=== PATIENT | female | born 1945 | race Caucasian/White ===

== ENCOUNTER → 2022-07-11 09:35 | Outpatient (CLI) | payer SELFPAY ==
--- NOTE | 2022-07-11 09:40 | XR_ITS ---
FINAL REPORT CLINICAL HISTORY: PERSISTENT LOW BACK PAIN FINDINGS: LUMBAR SPINE 5 views of the lumbar spine were obtained. There is no evidence of fracture or dislocation. There is dextroscoliosis. The vertebral alignment is normal. There are mild and moderate degenerative changes. No paraspinous soft tissue abnormalities identified. IMPRESSION: Degenerative changes with no acute bony abnormality. Reviewed, Interpreted and Dictated by Greg White III, MD Transcribed by Elen Bucio Authenticated and [facility]
== END ==
PROVIDERS: Visit Provider Family Medicine
DX: M54.50 Low back pain, unspecified (principal)
CPT/HCPCS: 72110

== ENCOUNTER 2025-01-13 20:55 | Emergency (ER) | payer SELFPAY ==
[2025-01-13 21:03] VITALS: BP 220/110; PULSE 75; RESP 20; TEMP 36.7; O2SAT 98; BMI 24.0
--- NOTE | 2025-01-13 21:07 | XR_ITS ---
PROCEDURE INFORMATION: Exam: XR Chest Exam date and time: 01/13/2025 9:50 PM Age: 79 years old Clinical indication: Shortness of breath; Additional info: Short of breath TECHNIQUE: Imaging protocol: Radiologic exam of the chest. Views: 1 view. COMPARISON: No relevant prior studies available. FINDINGS: Lungs: Unremarkable. No consolidation. Pleural spaces: Unremarkable. No pleural effusion. No pneumothorax. Heart/Mediastinum: Unremarkable. No cardiomegaly. Bones/joints: Mild degenerative changes of the spine and shoulders. No acute osseous abnormality. IMPRESSION: No acute disease
--- NOTE | 2025-01-13 21:07 | CT_ITS ---
PROCEDURE INFORMATION: Exam: CT Head Without Contrast Exam date and time: 01/13/2025 9:50 PM Age: 79 years old Clinical indication: Other: Elevated BP TECHNIQUE: Imaging protocol: Computed tomography of the head without contrast. Radiation optimization: All CT scans at this facility use at least one of these dose optimization techniques: automated exposure control; mA and/or kV adjustment per patient size (includes targeted exams where dose is matched to clinical indication); or iterative reconstruction. COMPARISON: No relevant prior studies available. FINDINGS: Brain: Moderate generalized cerebral atrophy. No intracranial mass, hemorrhage or evidence of acute ischemia. Cerebral ventricles: No ventriculomegaly. Paranasal sinuses: Visualized sinuses are unremarkable. No fluid levels. Mastoid air cells: Visualized mastoid air cells are well aerated. Nasal cavity: Significant leftward nasal septal deviation Bones: Unremarkable. No acute fracture. Soft tissues: Unremarkable. IMPRESSION: No acute intracranial abnormality
--- NOTE | 2025-01-13 21:09 | ECG_ITS ---
APPROVED REPORT Exam: Resting ECG HR:75 bpm ECG Measurements Heart Rate 75 AXES IN 172 P 73 QRSd 95 QRS 52 QT 419 T 20 QTc 448 Conclusion SINUS RHYTHM NONSPECIFIC T-WAVE ABNORMALITY No STEMI Electronically signed by : MARQUISE PABON, 01/14/2025 00:09:51
--- NOTE | 2025-01-13 21:16 | HMH.EDGENADL ---
Discharge Plan Disposition Patient Disposition: Home, Self-Care Condition: Good Prescriptions Prescriptions: New lisinopril 10 mg tablet 10 mg PO DAILY Qty: 30 1RF No Action amitriptyline 25 mg tablet 25 mg PO HS PRN (Reason: sleep) Qty: 30 10RF Activity Restrictions/Add. Instructions Additional Instructions/Restrictions: You were evaluated in the emergency department today. Your labs and CT scan are reassuring today. Your blood pressure was very high, so we are starting you on a low-dose blood pressure medication. Please follow-up closely with your primary care provider for adjustment and monitoring of this. If you experience dizziness, lightheadedness, or passing out, please stop this medication until otherwise directed by your doctor. Return to the emergency department for new or worsening symptoms. Clinical Impressions Clinical Impression: Headache, High blood pressure Instructions Patient Instructions: DI for High Blood Pressure, DI for Headache Print Language Print Language: Beninese Discharge ED Provider: Noemí Ruffin General Adult HPI <Tanya Collado (ED), [employer] OPERATOR - Last Filed: 01/13/25 21:50> General Chief complaint: Headache Stated complaint: HBP Time Seen by Provider: 01/13/25 21:01 Mode of Arrival: Ambulatory Source of Information: Patient Description of Symptoms (Recalled from ER Triage Doc. by RN): Pt states she has headache and BP is elevated History of Present Illness HPI narrative: 79-year-old female presents to the ED today for complaint of headache and elevated blood pressure. She had [place] from an take her blood pressure this afternoon and it was over 200 systolic. She was encouraged to come to the emergency room for evaluation with the headache and the elevated blood pressure. She denies any visual changes. No weakness, no chest pain. She does have shortness of breath with exertion. She says this is no more than normal. Patient states that her right leg swells at times. No left leg swelling. No nausea or vomiting. No fever or chills. No other systemic symptoms. Patient denies any other problems or concerns today. She denies any health problems. Related Data Previous Rx's ?Medication ?Instructions ?Recorded amitriptyline 25 mg tablet 25 mg PO HS PRN sleep #30 tabs 12/11/20 lisinopril 10 mg tablet 10 mg PO DAILY #30 tabs 01/13/25 Allergies Allergy/AdvReac Type Severity Reaction Status Date / Time Penicillins AdvReac Unknown Verified 11/16/20 10:10 [facility] <Tanya Collado (ED), [employer] OPERATOR - Last Filed: 01/13/25 21:50> [facility] Disclaimer: The information contained in this section may have been updated after the patient was seen, as this information can be updated by other users. Social History Smoking Status: Never smoker alcohol intake: never substance use type: denies use current occupational status: retired and other Travel in the last 8 weeks?: None Have you lived/traveled outside [place] in past 30 days?: No Contact w/someone who lives/traveled outside US past 30 days?: No Exposure to someone with infectious disease in past 14 days?: No Do you have a fever (greater than 100.4 F or 38 C)?: No Have you tested positive for COVID-19?: No Exposed to someone with COVID-19 in past 14 days?: No Do you have a sore throat?: No Do you have a cough?: No Do you have any weakness?: No Do you have any diarrhea?: No Are you experiencing any unusual bleeding?: No Do you have any muscle aches/pain?: No Do you have any abdominal pain?: No Are you experiencing loss of taste or smell?: No Other Medical History Have you received the Pneumonia Vaccine: No <Tanya Collado (ED), [employer] OPERATOR - Last Filed: 01/13/25 21:50> ROS Obtained: Yes Systems reviewed as appropriate & no additional complaints except as documented Constitutional Constitutional: Reports as per HPI Physical Exam <Tanya Collado (ED), [employer] OPERATOR - Last Filed: 01/13/25 21:50> General General appearance: alert and in no apparent distress Head Head exam: atraumatic and normocephalic Eye Eye exam: Present normal appearance, PERRL and EOMI ENT ENT exam: Present normal oropharynx and mucous membranes moist Neck Neck exam: Present full ROM and trachea midline Chest Chest inspection: Present normal inspection Respiratory Respiratory exam: Present normal lung sounds bilaterally Cardiovascular Cardiovascular exam: Present regular rate, normal rhythm, normal heart sounds, +S1 and +S2 Abdominal Exam Abdominal exam: Present soft and normal bowel sounds Extremities Exam Extremities exam: Present full ROM, normal capillary refill and edema (Right leg only) Neurological Exam Neurological exam: Present alert, oriented X3 and normal gait Skin Skin exam: Present warm, dry and intact Medical Decision Making <Tanya Collado (ED), [employer] OPERATOR - Last Filed: 01/13/25 21:50> Medical Records Screening: Per USPSTF and CDC recommendations, given the prevalence of disease in our region, it is our hospital?s policy to screen for HIV and viral Hepatitis for all patients aged 18 and over and those with ongoing risk factors. Terence Inquiry Pt receiving controlled substance: No Terence was queried for this patient: No Vital Signs: 01/13/25 21:03 01/13/25 21:53 01/13/25 22:00 Temperature 98.1 F Temperature Source Oral Pulse Rate 64 65 Pulse Rate [Right Brachial] 75 Respiratory Rate 20 16 Blood Pressure 155/96 H Blood Pressure [Right Arm] 220/110 H Blood Pressure Mean 134 Blood Pressure Mean [Right Arm] 146 Blood Pressure Source Blood Pressure Source [Right Arm] Automatic Cuff Blood Pressure Position Blood Pressure Position [Right Arm] Sitting 02 Sat by Pulse Oximetry 98 98 96 Oxygen Delivery Method Room Air 01/13/25 22:30 01/13/25 23:02 01/13/25 23:09 Temperature 98.1 F Temperature Source Oral Pulse Rate 67 62 62 Pulse Rate [Right Brachial] Respiratory Rate 18 18 18 Blood Pressure 172/94 H 168/100 H 168/100 H Blood Pressure [Right Arm] Blood Pressure Mean 143 122 Blood Pressure Mean [Right Arm] Blood Pressure Source Automatic Cuff Blood Pressure Source [Right Arm] Blood Pressure Position Sitting Blood Pressure Position [Right Arm] 02 Sat by Pulse Oximetry 97 Oxygen Delivery Method Room Air Lab Data Lab Results 01/13/25 21:00: WBC 5.6, RBC 4.01 L, Hgb 12.1 L, Hct 35.6 L, MCV 88.8, MCH 30.2, MCHC 34.0, RDW 14.1, Plt Count 224, MPV 9.5, Neut % (Auto) 61.6, Lymph % (Auto) 21.8, [place] % (Auto) 14.2 H, Eos % (Auto) 2.2, Baso % (Auto) 0.0 L, Neut # (Auto) 3.4, Lymph # (Auto) 1.2, [place] # (Auto) 0.8, Eos # (Auto) 0.1, Baso # (Auto) 0.0, PT 10.8, INR 0.97, Sodium 134 L, Potassium 4.0, Chloride 99, Carbon Dioxide 24, Anion Gap 15.0, BUN 15, Creatinine 0.90, Estimated Creat Clear 46, Estimated GFR 60, Est GFR ( Amer) 73, Glucose 94, Calcium 9.4, Magnesium 1.8, Total Bilirubin 0.5, AST 61 H, ALT 51, Alkaline Phosphatase 69, Troponin I < 0.01, Total Protein 7.5, Albumin 4.7, Globulin 2.8, Albumin/Globulin Ratio 1.7, Lipase 223, HCV Ab SABAS w/Rflx PCR Qn Negative 01/13/25 21:00 01/13/25 21:00 Orders (Tests/Meds): ED MEDICATIONS Discontinued Medications Generic Name Dose Route Start Last Admin Trade Name Freq PRN Reason Stop Dose Admin Acetaminophen 1,000 mg 01/13/25 21:07 01/13/25 21:17 Acetaminophen 1,000mg/100ml Vial IV 01/13/25 21:08 1,000 mg ONCE ONE Administration Sodium Chloride 1,000 mls @ 999 mls/hr 01/13/25 21:07 01/13/25 21:17 Sod Chlor 0.9% 1000ml Bag IV 01/13/25 22:07 999 mls/hr .Q1H1M ONE Administration Magnesium Sulfate 2 gm in 50 mls @ 50 mls/hr 01/13/25 21:07 01/13/25 21:35 Magnesium Sulfate 2gm/50ml Premix IV 01/13/25 22:06 50 mls/hr ONCE ONE Administration Lisinopril 10 mg 01/13/25 22:52 01/13/25 22:59 Lisinopril 10mg Tablet PO 01/13/25 22:53 10 mg ONCE ONE Administration ORDERS Category Date Time Status CT head/brain wo con Stat Cat Scan 01/13/25 21:07 Completed Chest XR -- portable [XR chest portable] Stat Exams 01/13/25 21:07 Completed CBC [Complete Blood Count Auto Diff] Stat Lab 01/13/25 21:00 Completed Comprehensive Metabolic Panel Stat Lab 01/13/25 21:00 Completed HIV Combo Routine Lab 01/13/25 21:00 Received Hepatitis C Ab Qual. W/ RFX Routine Lab 01/13/25 21:00 Completed Lipase Stat Lab 01/13/25 21:00 Completed Magnesium Stat Lab 01/13/25 21:00 Completed PT INR [Prothrombin Time INR] Stat Lab 01/13/25 21:00 Completed Trop I [Troponin I] Stat Lab 01/13/25 21:00 Completed Medical Decision Narrative: patient is a 79-year-old female presenting to the emergency department for evaluation of elevated blood pressure and headache. Patient has elevated blood pressure and nontoxic-appearing upon arrival, afebrile. Differential diagnosis includes hypertensive emergency, head bleed, among others. Workup will be conducted with hematologic labs, specific imaging . Initial inventions include crystalloid bolus and scan of head. I have discussed her hypertension with Dr. Ruffin and her plan will be to do labs and monitor her pressure. Dr. Ruffin will be taking over her care. <Noemí Ruffin, DO - Last Filed: 01/13/25 23:53> Vital Signs: 01/13/25 21:03 01/13/25 21:53 01/13/25 22:00 Temperature 98.1 F Temperature Source Oral Pulse Rate 64 65 Pulse Rate [Right Brachial] 75 Respiratory Rate 20 16 Blood Pressure 155/96 H Blood Pressure [Right Arm] 220/110 H Blood Pressure Mean 134 Blood Pressure Mean [Right Arm] 146 Blood Pressure Source Blood Pressure Source [Right Arm] Automatic Cuff Blood Pressure Position Blood Pressure Position [Right Arm] Sitting 02 Sat by Pulse Oximetry 98 98 96 Oxygen Delivery Method Room Air 01/13/25 22:30 01/13/25 23:02 01/13/25 23:09 Temperature 98.1 F Temperature Source Oral Pulse Rate 67 62 62 Pulse Rate [Right Brachial] Respiratory Rate 18 18 18 Blood Pressure 172/94 H 168/100 H 168/100 H Blood Pressure [Right Arm] Blood Pressure Mean 143 122 Blood Pressure Mean [Right Arm] Blood Pressure Source Automatic Cuff Blood Pressure Source [Right Arm] Blood Pressure Position Sitting Blood Pressure Position [Right Arm] 02 Sat by Pulse Oximetry 97 Oxygen Delivery Method Room Air Lab Data Lab Results 01/13/25 21:00: WBC 5.6, RBC 4.01 L, Hgb 12.1 L, Hct 35.6 L, MCV 88.8, MCH 30.2, MCHC 34.0, RDW 14.1, Plt Count 224, MPV 9.5, Neut % (Auto) 61.6, Lymph % (Auto) 21.8, [place] % (Auto) 14.2 H, Eos % (Auto) 2.2, Baso % (Auto) 0.0 L, Neut # (Auto) 3.4, Lymph # (Auto) 1.2, [place] # (Auto) 0.8, Eos # (Auto) 0.1, Baso # (Auto) 0.0, PT 10.8, INR 0.97, Sodium 134 L, Potassium 4.0, Chloride 99, Carbon Dioxide 24, Anion Gap 15.0, BUN 15, Creatinine 0.90, Estimated Creat Clear 46, Estimated GFR 60, Est GFR ( Amer) 73, Glucose 94, Calcium 9.4, Magnesium 1.8, Total Bilirubin 0.5, AST 61 H, ALT 51, Alkaline Phosphatase 69, Troponin I < 0.01, Total Protein 7.5, Albumin 4.7, Globulin 2.8, Albumin/Globulin Ratio 1.7, Lipase 223, HCV Ab SABAS w/Rflx PCR Qn Negative Orders (Tests/Meds): ED MEDICATIONS Discontinued Medications Generic Name Dose Route Start Last Admin Trade Name Freq PRN Reason Stop Dose Admin Acetaminophen 1,000 mg 01/13/25 21:07 01/13/25 21:17 Acetaminophen 1,000mg/100ml Vial IV 01/13/25 21:08 1,000 mg ONCE ONE Administration Sodium Chloride 1,000 mls @ 999 mls/hr 01/13/25 21:07 01/13/25 21:17 Sod Chlor 0.9% 1000ml Bag IV 01/13/25 22:07 999 mls/hr .Q1H1M ONE Administration Magnesium Sulfate 2 gm in 50 mls @ 50 mls/hr 01/13/25 21:07 01/13/25 21:35 Magnesium Sulfate 2gm/50ml Premix IV 01/13/25 22:06 50 mls/hr ONCE ONE Administration Lisinopril 10 mg 01/13/25 22:52 01/13/25 22:59 Lisinopril 10mg Tablet PO 01/13/25 22:53 10 mg ONCE ONE Administration ORDERS Category Date Time Status CT head/brain wo con Stat Cat Scan 01/13/25 21:07 Completed Chest XR -- portable [XR chest portable] Stat Exams 01/13/25 21:07 Completed CBC [Complete Blood Count Auto Diff] Stat Lab 01/13/25 21:00 Completed Comprehensive Metabolic Panel Stat Lab 01/13/25 21:00 Completed HIV Combo Routine Lab 01/13/25 21:00 Received Hepatitis C Ab Qual. W/ RFX Routine Lab 01/13/25 21:00 Completed Lipase Stat Lab 01/13/25 21:00 Completed Magnesium Stat Lab 01/13/25 21:00 Completed PT INR [Prothrombin Time INR] Stat Lab 01/13/25 21:00 Completed Trop I [Troponin I] Stat Lab 01/13/25 21:00 Completed ECG Data Tracing #1: I reviewed this ECG and interpreted as documented below: Normal sinus rhythm with a ventricular rate of [address] changes concerning for STEMI. ECG initial impression date: 01/13/25 ECG initial impression time: 21:12 Medical Decision Narrative: patient is a 79-year-old female presenting to the emergency department for evaluation of elevated blood pressure and headache. Patient has elevated blood pressure and nontoxic-appearing upon arrival, afebrile. Differential diagnosis includes hypertensive emergency, head bleed, among others. Workup will be conducted with hematologic labs, specific imaging . Initial inventions include crystalloid bolus and scan of head. I have discussed her hypertension with Dr. Ruffin and her plan will be to do labs and monitor her pressure. Dr. Ruffin will be taking over her care. DO Augustin: I was consulted by the IDA, and we discussed the complexity of the problems being addressed. I approved the treatment and management plan for this patient's care in the emergency department, thus performing a substantive portion of the medical decision making. On my assessment of the patient, she is resting comfortably with complete breath pressure and resolved headache after administration of migraine cocktail. I independently interpreted CT scan prior to radiology read and noted no intracranial hemorrhage or mass. Labs do not demonstrate any acute endorgan dysfunction with reassuring CBC and chemistry with normal kidney function. AST is very mildly elevated, which is nonspecific. Patient's blood pressure is still elevated with systolics in the 170s after treatment of headache and resolution of symptoms, so will elect to start her on low-dose lisinopril and have her follow-up closely with her primary care provider. I considered IV blood pressure medication however I do not feel that it is indicated given that she does not have evidence of endorgan dysfunction. I do not feel that she has hypertensive emergency or requires admission for further assessment at this time. She was given instructions for close monitoring of her blood pressure at home, close PCP follow-up, and strict return precautions. She was discharged after all questions were answered Noemí Ruffin DO Critical Care <Tanya Collado (ED), [employer] OPERATOR - Last Filed: 01/13/25 21:50> Critical Care Time Critical Care Time: No <Noemí Ruffin DO - Last Filed: 01/13/25 23:53> Critical Care Time Critical Care Time: Yes Attestation: On 01/13/25, the high probability of a clinically significant, sudden or life threatening deterioration of the following system(s) required my full and direct attention, intervention and personal management. The time I documented below is in addition to time spent performing reported procedures but includes the following listed in this critical care notation. Total Time Total Critical Care Time: 35
[2025-01-13] MEDS: ACETAMINOPHEN 1,000MG/100ML VIAL 1000 MG IV (21:17)
[2025-01-13] MEDS: 0.9 % SODIUM CHLORIDE 1000ML 1,000 ML 999 ML IV (21:17)
[2025-01-13 21:22] LABS: Albumin Level 4.7 g/dl (3.5-5.0); Chloride 99 mmol/L (98-107); Potassium 4.0 mmoL/L (3.5-5.1); Sodium 134 mmol/L (136-145)
[2025-01-13 21:25] LABS: Alanine Aminotransferase 51 U/L (12-78); Albumin/Globulin Ratio 1.7 (1.1-1.8); Alkaline Phosphatase 69 U/L (38-126); Anion Gap 15.0 mEq/L (5-15); Aspartate Amino Transferase 61 U/L (14-36); Bilirubin,Total 0.5 mg/dl (0.2-1.3); Blood Urea Nitrogen 15 mg/dl (7-17); Calcium 9.4 mg/dl (8.4-10.2); Carbon Dioxide 24 mmol/L (22.0-30.0); Creatinine Clearance Estimated 46 mL/min (50-200); Creatinine,Serum 0.90 mg/dl (0.52-1.04); Estimated Glomerular Filt Rate 60 ml/min (>60); GFR (African American) 73 ML/MIN (>60); Globulin 2.8 g/dL (1.3-3.2); Glucose 94 mg/dl (74-100); Lipase 223 U/L (23-300); Total Protein,Serum 7.5 g/dl (6.3-8.2)
[2025-01-13 21:26] LABS: Magnesium 1.8 mg/dl (1.6-2.3)
[2025-01-13 21:30] LABS: Hematocrit 35.6 % (37.0-47.0); Hemoglobin 12.1 g/dL (12.2-16.2); Immature Granulocytes % 0.2 %; Mean Corpuscular HGB Conc 34.0 g/dL (31.8-35.4); Mean Corpuscular Hemoglobin 30.2 pg (27.0-31.2); Mean Corpuscular Volume 88.8 fl (81-99); Nucleated Red Blood Cells % 0 %; Platelet Count 224 K/mm3 (142-424); Red Blood Count 4.01 M/mm3 (4.20-5.40); Red Cell Distribution Width-SD 45.4 fL; White Blood Count 5.6 K/mm3 (4.8-10.8)
[2025-01-13] MEDS: MAGNESIUM SULFATE IN WATER 2 GM/50 ML PIGGYBACK IV (21:35)
[2025-01-13 21:36] LABS: INR 0.97 (0.9-1.1); Prothrombin Time 10.8 seconds (10.1-12.5)
[2025-01-13 21:40] LABS: Troponin I < 0.01 ng/ml (0.00-0.034)
[2025-01-13 21:53] VITALS: PULSE 64; O2SAT 98
[2025-01-13 22:00] VITALS: BP 155/96; PULSE 65; RESP 16; O2SAT 96
[2025-01-13 22:30] VITALS: BP 172/94; PULSE 67; RESP 18; O2SAT 97
[2025-01-13] MEDS: LISINOPRIL 10MG TABLET 10 MG PO (22:59)
[2025-01-13 23:02] VITALS: BP 168/100; PULSE 62; RESP 18
[2025-01-13 23:09] VITALS: BP 168/100; PULSE 62; RESP 18; TEMP 36.7; O2SAT 99
[2025-01-13 23:32] LABS: Hepatitis C Ab Qual. W/ RFX NEGATIVE (Negative)
== END 2025-01-13 23:25 | disposition home or self-care (01) ==
PROVIDERS: Nurse Practitioner; Emergency Provider Emergency Medicine
DX: R51.9 Headache, unspecified (principal); I10 Essential (primary) hypertension
CPT/HCPCS: 70450; 71045; 80053; 83690; 83735; 84484; 85025; 85610; 86803; 87389; 93005; 96365; 96374; 99285; J0131; J3475; J7030